=== PATIENT | male | born 1960 ===

== ENCOUNTER 2023-01-02 06:19 | Inpatient (IN) | payer OTHER ==
[~2023-01-02 06:19] MED LIST: IMODIUM2 MG PO; LOSARTAN POTASS50 MG PO; TAMS0.4C PO
== END 2023-01-04 09:56 | disposition home or self-care (01) | DRG 661 ==
LOC: CIR.AMB 06:19 → O/R 18:28 → SURH 18:28 → SURG 01-03 15:34 → SURH 01-03 17:23
PROVIDERS: ADMIT Urology; ATTEND Urology
PROC: 0TC08ZZ Extirpation of Matter from Right Kidney, Via Natural or Artificial Opening Endoscopic (ICD-10-PCS; 2023-01-02)
PROC: BT0 Imaging, Urinary System, Plain Radiography (ICD-10-PCS; 2023-01-02)
PROC: 0T768DZ Dilation of Right Ureter with Intraluminal Device, Via Natural or Artificial Opening Endoscopic (ICD-10-PCS; principal; 2023-01-02 11:30)
PROC: BT04YZZ Plain Radiography of Kidneys, Ureters and Bladder using Other Contrast (ICD-10-PCS; 2023-01-04)
DX: N20.1 Calculus of ureter (principal); I10 Essential (primary) hypertension

== ENCOUNTER 2023-01-14 07:12 | Outpatient (CLI) | payer OTHER | END 2023-01-14 07:20 | disposition home or self-care (01) | LOC: RAD 07:12 | PROVIDERS: ATTEND Urology | DX: N20.1 Calculus of ureter (principal) ==